=== PATIENT | female | born 1980 | race Caucasian/White ===

== ENCOUNTER 2018-04-14 14:25 | Inpatient (IN) | payer OTHER ==
[2018-04-14] MEDS: LACTATED RINGER'S 1,000 ML IV* (14:55)
[2018-04-14] MEDS: BUTORPHANOL 2 MG INJ IV (14:56)
[2018-04-14] MEDS: AMPICILLIN 2 GM/NS (PMX) 100 ML IV (14:57)
[2018-04-14] MEDS ORDERED: IBUPROFEN 600 MG TAB PO (15:00)
[2018-04-14] MEDS ORDERED: CARBOPROST 250 MCG INJ IM ×2 (15:00→17:30)
[2018-04-14] MEDS ORDERED: METHYLERGONOVINE 0.2 MG INJ IM ×2 (15:00→17:30)
[2018-04-14] MEDS ORDERED: MISOPROSTOL 200 MCG TAB PR ×2 (15:00→17:30)
[2018-04-14] MEDS ORDERED: ACETAMINOPHEN/CODEINE #3 TAB PO (15:00)
[2018-04-14 15:03] LABS: ADD MAN DIFF? NO
[2018-04-14 15:18] LABS: WHITE BLOOD COUNT 11.8 10^3/ul (4.8-10.8)
[2018-04-14 15:18] LABS: BASOPHILS % 0.3 % (0.0-2.0); EOSINOPHILS % 0.1 % (0.0-7.0); HEMATOCRIT 34.7 % (37.0-47.0); HEMOGLOBIN 11.4 g/dl (12.0-16.0); LYMPHOCYTES # 1.1 10^3/ul (0.8-2.9); LYMPHOCYTES % 9.2 % (15.0-51.0); MEAN CORPUSCULAR HEMOGLOBIN 26.8 pg (29.0-33.0); MEAN CORPUSCULAR HGB CONC 32.9 g/dl (32.0-37.0); MEAN CORPUSCULAR VOLUME 81.6 fl (82.0-101.0); MEAN PLATELET VOLUME 12.3 fl (7.4-10.4); MONOCYTE # 0.7 10^3/ul (0.3-0.9); MONOCYTES % 6.1 % (0.0-11.0); NEUTROPHIL # 9.9 10^3/ul (1.6-7.5); PLATELET COUNT 252 10^3/UL (140-415); RED BLOOD COUNT 4.25 10^6/ul (4.20-5.40)
[2018-04-14 15:25] LABS: INR 0.84; PROTIME 11.6 Sec (11.9-14.9); PT RATIO 0.9
[2018-04-14 15:26] LABS: PARTIAL THROMBOPLASTIN TIME 27.5 Sec (25.0-35.0)
[2018-04-14 15:59] LABS: HEPATITIS B SURFACE ANTIGEN NEGATIVE (NEGATIVE)
[2018-04-14] MEDS: LIDOCAINE 1% (MPF) 30 ML INJ INJ (16:05)
[2018-04-14] MEDS: OXYTOCIN 30 UNITS/LR 500 ML IV ×2 (16:08→16:47)
[2018-04-14] MEDS ORDERED: OXYTOCIN 30 UNITS/LR 500 ML IV (17:30)
[2018-04-14] MEDS ORDERED: ACETAMINOPHEN 325 MG TAB PO ×2 (17:30)
[2018-04-14] MEDS ORDERED: MAGNESIUM HYDROXIDE 30ML CUP PO (17:30)
[2018-04-14] MEDS ORDERED: ONDANSETRON 4 MG INJ IV (17:30)
[2018-04-14] MEDS: IBUPROFEN 600 MG TAB PO (18:43)
[2018-04-14] MEDS: BENZOCAINE 20% 56 ML SPRAY TOP (18:44)
[2018-04-14] MEDS: DIBUCAINE 1% 30 GM OINT PR (18:44)
[2018-04-14] MEDS: LANOLIN 7 GM TUBE TOP (18:44)
[2018-04-14] MEDS: WITCH HAZEL/GLYCERIN PAD PR (18:45)
[2018-04-14] MEDS ORDERED: AMPICILLIN 1 GM/NS (PMX) 50 ML IV (19:00)
[2018-04-15] MEDS: DOCUSATE SODIUM 100 MG CAP PO ×3 (00:23→21:00)
[2018-04-15] MEDS: IBUPROFEN 600 MG TAB PO ×4 (00:24→23:56)
[2018-04-15] MEDS: OXYTOCIN 30 UNITS/LR 500 ML IV (01:01)
[2018-04-15] MEDS: LACTATED RINGER'S 1,000 ML IV* (01:01)
[2018-04-15 09:21] LABS: ADD MAN DIFF? NO
[2018-04-15] MEDS: SENNA/DOCUSATE NA (8.6MG/50MG) TAB PO ×2 (09:23→20:32)
[2018-04-15 09:35] LABS: WHITE BLOOD COUNT 10.8 10^3/ul (4.8-10.8)
[2018-04-15 09:35] LABS: BASOPHILS % 0.4 % (0.0-2.0); EOSINOPHILS % 0.2 % (0.0-7.0); HEMATOCRIT 27.4 % (37.0-47.0); HEMOGLOBIN 8.8 g/dl (12.0-16.0); LYMPHOCYTES # 1.8 10^3/ul (0.8-2.9); MEAN CORPUSCULAR HEMOGLOBIN 26.6 pg (29.0-33.0); MEAN CORPUSCULAR HGB CONC 32.1 g/dl (32.0-37.0); MEAN CORPUSCULAR VOLUME 82.8 fl (82.0-101.0); MEAN PLATELET VOLUME 12.1 fl (7.4-10.4); MONOCYTE # 1.1 10^3/ul (0.3-0.9); MONOCYTES % 10.1 % (0.0-11.0); NEUTROPHIL # 7.8 10^3/ul (1.6-7.5); NEUTROPHILS % 71.9 % (39.0-77.0); PLATELET COUNT 219 10^3/UL (140-415); RED BLOOD COUNT 3.31 10^6/ul (4.20-5.40); RED CELL DISTRIBUTION WIDTH 15.4 % (11.5-14.5)
[2018-04-15 20:48] LABS: RAPID PLASMA REAGIN NONREACTIVE (NR)
[2018-04-16] MEDS: IBUPROFEN 600 MG TAB PO (05:34)
[2018-04-16] MEDS: DOCUSATE SODIUM 100 MG CAP PO (09:00)
[2018-04-16] MEDS: SENNA/DOCUSATE NA (8.6MG/50MG) TAB PO (10:08)
== END 2018-04-16 15:05 | disposition home or self-care (01) | DRG 775 ==
LOC: OBT 14:25 → L-D 14:26 → OBT 14:30 → L-D 14:30 → PP1 17:45
PROVIDERS: Obstetrics & Gynecology Gynecology
PROC: 10E0XZZ Delivery of Products of Conception, External Approach (ICD-10-PCS; principal; 2018-04-14)
PROC: 0W8NXZZ Division of Female Perineum, External Approach (ICD-10-PCS; 2018-04-14)
DX: O90.81 Anemia of the puerperium (principal); D64.9 Anemia, unspecified; Z3A.37 37 weeks gestation of pregnancy; Z37.0 Single live birth
CPT/HCPCS: 85025; 85610; 85730; 86592; 86850; 86900; 86901; 87340; 99464